=== PATIENT | male | born 2000 | race Caucasian/White ===

== ENCOUNTER → 2021-06-11 | Outpatient (CLI) | payer BC ==
[~2021-06-11] MED LIST: ATIVAN 1MG T1 MG/TAB PO; HCTZ12.5TAB PO; RITALIN; RITALIN PO; SINGULAIR 110 MG/TAB PO; VENTOLIN0.09 MG IH
== END ==
LOC: COL.RAD 06-04 09:00
DX: N50.3 Cyst of epididymis (principal)